=== PATIENT | male | born 1950 | race Caucasian/White ===

== ENCOUNTER 2018-11-13 16:21 | Inpatient (IN) | payer MEDICARE, OTHER ==
[~2018-11-13] VITALS: Ht 170.2 cm; Wt 61.7 kg
--- NOTE | ~2018-11-13 | CON ---
[address] [address] CONSULTATION Name: PEÑASANTOSH AUDRA Room: [address] IN M.R.#: [id number] Admission: 11/13/18 Attend Phys: Mila Rodriguez MD Discharge: Date of : 48 Report #: [id number] THIS REPORT FOR: //name// CC: Jac Rodriguez [facility] DATE OF SERVICE: 11/23/2018 CONSULTATION: Infectious diseases. HISTORY OF PRESENT ILLNESS: The patient is a 68-year-old white male with end-stage COPD. The patient was hospitalized on 11/13/2018 with exacerbation of this. He was treated with antibiotics. However, within the few days the family and the patient said they wanted just comfort care. The patient was refusing therapies. His prognosis was very poor because of fixed extensive lung disease. The patient continued in the hospital and home care with hospice was set up. The patient became more short of breath and the family is now ambivalent about their decision to go to hospice. Infectious Disease consultation was requested to advise as to further aggressive therapy. PAST MEDICAL HISTORY: Significant for COPD, cor pulmonale, pulmonary hypertension, peripheral hypertension, hyperlipidemia. SOCIAL HISTORY: The patient was a heavy cigarette smoker. He is disabled. He now lives at home with family. REVIEW OF SYSTEMS: The patient is not complaining of fevers, chills, sweats. He denies any headache, sinus congestion, sore throat, trouble swallowing. The family notes that his mental status waxes and wanes. He has been sometimes confused and other times cogent. The patient has a cough which is nonproductive and is weak, but can be persistent. He denies any chest pain. He has chronic dyspnea in spite of oxygen. The patient denies nausea, vomiting, abdominal pain. Genitourinary: Catheter -- no complaints. Extremities -- no complaints. PHYSICAL EXAMINATION: GENERAL: The patient appears to be a debilitated, older gentleman looking older than his stated age, alert, able to carry on conversation, not in distress. VITAL SIGNS: Show the patient's temperature is normal. His respiratory rate is elevated. SKIN: Shows a number of ecchymoses and is somewhat pale and sallow, but otherwise without rash. There is a small area on the sacrum, which is somewhat erythematous. There is about 2 mm punctate wound, which might represent an early decubitus ulcer, although I cannot see the base clearly and it maybe a previous wound or even a congenital abnormality which has been epithelialized. [place] [address] CONSULTATION Name: SANTOSH PEÑA AUDRA Room: [address] IN M.R.#: [id number] Admission: 11/13/18 Attend Phys: Mila Rodriguez MD Discharge: Date of : 48 Report #: [id number] MUSCULOSKELETAL: The patient appears sarcopenic and weak. ENT: otherwise unremarkable. HEART: Sounds S1, S2. CHEST: Breath sounds were diminished with a few scattered rhonchi. The patient was not clinically dyspneic at rest in bed. ABDOMEN: Thin, soft, not tender. EXTREMITIES: Thin, but otherwise unremarkable. LABORATORY DATA: White count is 21.9, hemoglobin 14.9, platelet 254,000. Electrolytes show sodium 122, potassium 2.6, chloride 81, bicarbonate 42, BUN 13, creatinine 0.6, glucose 177. Liver function tests were normal. The radiograph of the chest showed COPD changes with increased interstitial fibrosis. There appeared to be increased bibasilar infiltrates relative to baseline films. ASSESSMENT AND PLAN: In summary, the patient with exacerbation of chronic obstructive pulmonary disease, probably has a superimposed pneumonia with more dyspnea, leukocytosis and infiltrates. I discussed with the family in the presence of the patient that this is a rather dire situation. He has severe fixed disease, which will not get better. There probably is a superimposed acute component, which may respond to aggressive therapy. However, this will involve the patient give some effort to participate in therapies including consenting to medication, blood draws, testing, respiratory therapy. He also to get better will need to work with physical therapy to increase strength to try to get out of bed more and nutritional therapy by consuming an adequate number of supplements for protein and calorie malnutrition. I compared this regimen to training for an athletic event. This will not happen just lying down and do what is most comfortable. Even with the best of case, the patient may or may not respond. If he does respond, he will still have a fixed lung disease, which will probably be terminal in the 6-12 months range. The family wondered if we could do aggressive care and still have hospice at home. I explained that really is not the mission of hospice and they will need to obtain some clarity as to how they want to manage the patient's end of life care. For now, we will restart antibiotics with cefepime and Levaquin. I would like to check for inflammatory markers including procalcitonin, sedimentation rate, and lactate. We can try to find the pathogen using urinary antigens for Pneumococcus and Legionella. We will check BNP and TSH and see if there was any metabolic impediments to healing. At this time, we will not be able to obtain sputum for direct culture without a bronchoscopy. I appreciate the opportunity to offer input in the care of the patient. I had further conversation out of the room with his daughter to try to explain the choices that the family will need to make. Dr[place] [address] CONSULTATION Name: SANTOSH PEÑA Room: [address] ADM IN .R.#: [id number] Admission: 11/13/18 Attend Phys: Mila Rodriguez MD Discharge: Date of : 48 Report #: [id number] disease care on Saturday. Thank you for this consultation. By: [id number] Fisher MD /cedrick
[~2018-11-13 16:21] MED LIST: ACETAMINOPHEN325 M1 PO; ADVAIR 500-501 EACH INH; ALBUTEROL2.5 MG/0.1 INH; ALBUTEROL2.5 MG/31 IH; ANDROGEL; ANDROGEL5 GM TOP; ASPIRIN325 OR; ATROVENT HFA14 GM INH; ATROVENT INHALER INH; CALCIUM; CALCIUM500 MG PO; CENTRUM SILVER1 EAC1 PO; COMBIVENT; FLONASE 0.05%50 MCG; GUAIFENESIN L1200 MG OR; LASIX 20 MG TAB20 MG PO; METAFOLBIC TAB1 EACH PO; MUCUS ER600 MG PO; MULTIVITAMINS PO; NICOTINE TRANSD14 M1; POTASSIUM OTC; POTASSIUM20 PO; PREDNISONE 10 M10 M1 PO; PREDNISONE 20 M20 M1; PREDNISONE 20 M20 MG PO; PROAIR HFA8.5 GM INH; ROVIN-CF OF TA1 EACH; SINGULAIR 10 MG10 M1 OR; SPIRIVA; SYMBICORT; SYMBICORT80 MCG/4.1 INH; XANAX 0.25 MG0.25 MG PO; ZPAK PO
[2018-11-13 16:23] VITALS: BP 167/93
[2018-11-13 17:06] LABS: HEMOGLOBIN 14.9 gm/dL (14.0-18.0); MCH 30.4 pg (26.0-34.0); MCHC 33.9 g/dL (28.0-37.0); MCV 89.7 fL (80.0-100.0); MPV 7.7 fl. (7.2-11.1); NUCLEATED RBCS 0 /100WBC; PLATELET COUNT* 287 thou/uL (150-400); RBC 4.91 mil/uL (4.50-6.00); RDW-CV 12.9 % (10.5-14.5); WBC 11.2 thou/uL (4.0-11.0)
[2018-11-13 17:27] LABS: ALBUMIN 3.6 g/dL (3.4-5.0); ALKALINE PHOSPHATASE 54 U/L (46-116); ANION GAP 4 mmol/L (7-16); BUN 8 mg/dL (7-18); CALCIUM 8.8 mg/dL (8.5-10.1); CHLORIDE 89 mmol/L (98-107); CO2 37 mmol/L (21-32); CREATININE 0.7 mg/dL (0.6-1.3); GLUCOSE 116 mg/dL (70-99); LIPASE 122 U/L (73-393); MAGNESIUM 1.9 mg/dL (1.8-2.4); NT-PRO BRAIN NAT PEPTIDE 302 pg/mL (<300); POTASSIUM 3.6 mmol/L (3.5-5.1); SGOT 26 U/L (15-37); SGPT 23 U/L (30-65); SODIUM 130 mmol/L (136-145); TOTAL BILIRUBIN 0.5 mg/dL (<0.1-1.0); TOTAL PROTEIN 6.9 g/dL (6.4-8.2); TROPONIN-I LEVEL <0.06 ng/mL (<0.06)
[2018-11-13 17:38] LABS: APTT 26.1 Seconds (25.0-31.3); PROTIME 10.5 Seconds (9.20-11.50)
[2018-11-13 17:45] LABS: ABSOLUTE MONOCYTES 0.8 thou/uL (0.0-1.2); ABSOLUTE NEUTROPHILS 9.4 thou/uL (1.6-8.1)
[2018-11-13 17:46] LABS: PLATELET ESTIMATE ADEQUATE
[2018-11-13 18:31] VITALS: BP 191/90
[2018-11-13 18:40] VITALS: BP 225/112
[2018-11-13 19:30] VITALS: BP 183/89
[2018-11-13 19:42] LABS: BE 4.1 mmol/L (-2 to +3); PO2 95.2 mmHg (75.0-100.0); pH 7.311 (7.340-7.450)
--- NOTE | 2018-11-13 19:43 | NUR ---
PATIENT ARRIVED FROM ER WITH BLOOD PRESSURE 225/112, PULSE 129, SATS 89% ON 3L. PATIENT SETTLED TO ROOM. DR MERLOS NOTIFIED OF VITAL SIGNS. PLACED ON TELEMETRY. DR MERLOS ORDERED HYDRALAZINE, ABG'S AND BIPAP. RT NOTIFIED. FAMILY AT BEDSIDE. WILL CONTINUE TO MONITOR.
[2018-11-13 19:47] LABS: PCO2 66.4 mmHg (35.0-45.0)
[2018-11-13 21:30] VITALS: BP 151/78
--- NOTE | 2018-11-13 23:35 | NUR ---
PT ADMITTED TO ROOM 318 AT SHIFT CHANGE FOR EXACERBATION COPD, PNEUMONITIS, RESPIRATORY FAILURE. PT ON O2 AT 4 LITERS AT THAT TIME. PT'S RESPIRATIONS LABORED. PT USING ALL EXCESSORY MUSCLES TO BREATHE. PT GIVEN PRN XANAX TO REDUSE ANXIETY IN ATTEMPT TO EASE WORK OF BREATHING. DR MERLOS NOTIFIED OF PT'S CONDITION. STAT ABG OBTAINED, RESULTS REPORTED TO DR MERLOS. RECIEVED ORDERS FOR BIPAP AND PULMONARY CONSULT. PT GIVEN IV SOLUMEDROL ORDERED. RT INITIATED BIPAP. PT GIVEN IV LASIX PER DR RODRIGUEZ ORDERS. AT 2100 PT BREATHING EASIER, RESPIRATIONS 18-22. PT NO LONGER USING ACCESSORY MUSCLES AND WORK OF BREATHING MUCH EASIER. PT VOIDING PER URINAL AT THAT TIME. URINAL SPILLED ON FLOOR. [place] CATHETER PLACED FOR SHORT TIME BUT PT ASKED TO HAVE IT REMOVED. PT GIVEN IV HYDRALAZINE BY DAY SHIFT NURSE FOR HYPERTENTION. PT'S BLOOD PRESSURE AT 2130 151/78 HEART RATE 125. PT GIVEN 5 MG IV LOPRESSOR PER DR RODRIGUEZ ORDERS. PT'S HEART RATE AT THIS TIME 106, O2 SAT 96%. PT SITTING IN CHAIR PER HIS REQUEST. CALL LIGHT IN REACH. PT DEMONSTRATES PROPER USE.
[2018-11-14] VITALS (7 sets, daily range): BP systolic 152–218; BP diastolic 80–96
[2018-11-14 04:03] LABS: HEMATOCRIT 46.3 % (42.0-52.0); HEMOGLOBIN 15.7 gm/dL (14.0-18.0); MCH 30.7 pg (26.0-34.0); MCV 90.4 fL (80.0-100.0); MPV 7.7 fl. (7.2-11.1); RBC 5.12 mil/uL (4.50-6.00); RDW-CV 12.9 % (10.5-14.5); WBC 7.8 thou/uL (4.0-11.0)
[2018-11-14 04:33] LABS: CALCIUM 8.1 mg/dL (8.5-10.1); CREATININE 0.7 mg/dL (0.6-1.3); MAGNESIUM 1.7 mg/dL (1.8-2.4); POTASSIUM 3.5 mmol/L (3.5-5.1)
[2018-11-14 07:36] LABS: BE 6.5 mmol/L (-2 to +3); pH 7.357 (7.340-7.450)
[2018-11-14 07:39] LABS: PCO2 62.9 mmHg (35.0-45.0); PO2 193.9 mmHg (75.0-100.0)
--- NOTE | 2018-11-14 09:11 | EKG ---
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: : 1950 Requested By: Winston Dunne Order Number: [id number] MD: Fran Elias Measurements Intervals [place] Rate: 113 P: 73 IL: 136 QRS: 28 QRSD: 99 T: 57 QT: 367 QTc: 504 Interpretive Statements Sinus tachycardia Probable left atrial enlargement RSR' in V1 or V2, right VCD or RVH Left ventricular hypertrophy Prolonged QT interval Compared to ECG 11/24/2013 19:21:09 Left ventricular hypertrophy now present Prolonged QT interval now present Electronically Signed On 11-14-2018 9:11:21 CDT by Fran Elias [email or web address] <ELECTRONICALLY SIGNED> By: Fran Elias MD, [facility] 11/14/18 0911 1623 1623 Fran Elias MD, [facility] /EPI
--- NOTE | 2018-11-14 16:28 | NUR ---
SW met with pt to complete initial assessment, introduce self, and SW role. Pt lives at home with his . Pt has home oxygen and respiratory treatments. Pt said to refer to his for any dc needs or any other questions. SW to continue to follow to assist with safe dc planning.
--- NOTE | 2018-11-14 17:46 | NUR ---
PATIENT RESTING UP IN CHAIR. SPECIALTY BED ORDERED BUT PATIENT REFUSING AT THIS TIME. PATIENT IS SHORT OF AIR WITH EXERTION. PATIENT DID WORK WITH PHYSICAL THERPY THIS AFTERNOON AND DESATED WITH SLOW RECOVERY TIME. PATIENT ON 3L/NC WITH BIPAP ON STANDBY AND FOR SLEEP. PATIENT DENIES ANY NEEDS AT THIS TIME. CALL LIGHT WITHIN REACH. WILL CONTINUE TO MONITOR.
[2018-11-15] VITALS (7 sets, daily range): BP systolic 141–178; BP diastolic 55–128
--- NOTE | 2018-11-15 00:35 | NUR ---
INITAL ASSESMENT COMPLETED AT 2099 PT'S BLOOD PRESSURE AT THAT TIME 218/96. PT GIVEN PRN HYDRALAZINE AND SCHADULED IV LOPRESSOR. PT ON BIPAP AT 1999 PER REQUEST. PT'S OS SAT ON BIPAP 96%. PT IN SPECIALTY BED WITH CALL LIGHT IN REACH.
[2018-11-15 04:21] LABS: HEMATOCRIT 43.2 % (42.0-52.0); HEMOGLOBIN 14.8 gm/dL (14.0-18.0); MCH 30.6 pg (26.0-34.0); MCHC 34.2 g/dL (28.0-37.0); MCV 89.6 fL (80.0-100.0); MPV 7.7 fl. (7.2-11.1); RBC 4.83 mil/uL (4.50-6.00); WBC 8.3 thou/uL (4.0-11.0)
[2018-11-15 04:41] LABS: ALBUMIN 3.5 g/dL (3.4-5.0); CALCIUM 8.7 mg/dL (8.5-10.1); CREATININE 0.9 mg/dL (0.6-1.3); MAGNESIUM 2.4 mg/dL (1.8-2.4); POTASSIUM 3.9 mmol/L (3.5-5.1); TOTAL BILIRUBIN 0.6 mg/dL (<0.1-1.0); TOTAL PROTEIN 6.5 g/dL (6.4-8.2)
[2018-11-15 06:13] LABS: BE 17.4 mmol/L (-2 to +3); PO2 97.4 mmHg (75.0-100.0)
[2018-11-15 06:17] LABS: PCO2 75.5 mmHg (35.0-45.0)
--- NOTE | 2018-11-15 10:48 | CON ---
[address] [address] CONSULTATION Name: SANTOSH PEÑA Room: [address] ADM IN M.R.#: [id number] Admission: 11/13/18 Attend Phys: Mila Rodriguez MD Discharge: Date of : 48 Report #: [id number] THIS REPORT FOR: //name// CC: AKIN Schwarz MD DATE OF SERVICE: 11/14/2018 LOCATION: Room 318. ATTENDING PHYSICIAN: Dr. Mila Rodriguez. HISTORY OF PRESENT ILLNESS: The patient is a 68-year-old male, prior heavy smoker with very severe COPD. He has been oxygen, steroid and Trelegy dependent; for the last 5 years for oxygen and steroids and Trelegy for the last year or 2. The patient has had increasing cough with shortness of breath. He has been sick for 3 days. He only gets out of the house twice in about the last 2 months, he has no sick or ill contacts. He had his flu shot this fall. He had his pneumonia vaccine this fall also. He denies any sinus drainage or aspiration. He has been losing weight. He gets little bit more short of breath when he eats. No choking admitted by him. He had little bit of peripheral edema in his right leg and I think one dose of Lasix took care of that. He has been on steroids, prednisone [address] Gonzalez and Dr. Schwarz for his COPD. The patient has been DNR/DNI in the past. He is much more short of breath, sleeps on the BiPAP at night and had Trelegy. CO2 levels came down in the 60s, which was his baseline early this morning on 3 liters, normally he is on 2-3 liters at home. PAST MEDICAL HISTORY: He has a history of very severe COPD in the last 5 or 6 years. Again, oxygen and steroid dependent for most of that time and then Trelegy dependent for the last year or two. Also, has hyperlipidemia. ALLERGIES: He has no known medical allergies. OUTPATIENT MEDICATIONS: Included albuterol nebulizers 4 times a day followed by Spiriva Handihaler inhaled 1 capsule daily, montelukast 10 mg every evening, prednisone dose is 20 mg every day and then he is on Symbicort 80/4.5 two puffs b.i.d. routinely, also is on budesonide 0.5 mg once or twice a day at home, has used formoterol or Brovana in the past also 15 mcg twice daily. In the hospital, he was on IV Levaquin. I will reorder an antibiotic. He had one [place] [address] CONSULTATION Name: SANTOSH PEÑA Room: [address] IN [facility]#: [id number] Admission: 11/13/18 Attend Phys: Mila Rodriguez MD Discharge: Date of : 48 Report #: [id number] FAMILY HISTORY: Mother with lung cancer. Father with heart disease. SOCIAL HISTORY: He is , has 2 sons. 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 Denies any alcohol or illicit drug use. REVIEW OF SYSTEMS: A 14-point review of systems was reviewed and negative except for pertinent positives noted in HPI. He has had some weight loss according to old notes and chronically short of breath. PHYSICAL EXAMINATION: GENERAL: A pleasant appearing enough, but chronically dyspneic 68-year-old male with his in the room. He is sitting up in a chair. VITAL SIGNS: Blood pressure is 158/80; heart rate is 104; respirations are 20, slightly labored and temperature is 36 degrees. Saturation on 2 liters is 95%. He is 5 feet 10 inches tall, weight is 61 kilograms or 135 pounds, previously was 131 pounds in 07/[address] Schwarz saw him and his BMI was 20 at that time, it is 21 now. Weight was about the same. HEENT: Unremarkable. Pharynx is clear. Mucous membranes are moist. No increase in jugular venous pressure. CHEST: Reveals markedly hyperinflated chest. Diminished breath sounds, prolonged expiratory phase with wheeze and rhonchi. CARDIOVASCULAR: Sinus tachycardia with heart rate 104. ABDOMEN: Soft, without masses or megaly. EXTREMITIES: He has trace edema in the right leg, none on the left. He can move all 4 extremities to commands. He is somewhat weak, getting up and out of the chair. NEUROLOGIC: Grossly intact. LABORATORY DATA: From 11/14/2018 showed hemoglobin of 15, white count 7800, platelets are 329,000. Sodium is 130, potassium is 3.5, chloride is 88, bicarbonate is elevated at 36, anion gap is 6, glucose is 135, calcium is 8.1, magnesium is 1.7. ABGs this morning at 7:30 when he was awake on 40% BiPAP 07/31 showed pO2 of 193, pH of 7.36, pCO2 of 63, bicarbonate is 34 with a sat of 98%. Carboxyhemoglobin is only 0.1 x 0.8 and that was on 40%, 07/31. Chest x-ray shows COPD and hyperinflation. Last spirometry Dr. Schwarz had on him in 2013, FEV1 was 0.40 with an FVC of 1.3 liters, FEV1 was 16% of predicted. Chest x-ray showed COPD and hyperinflation and that was the same that was in the hospital here from yesterday. Dr. Schwarz had an outpatient chest x-ray dated 08/28/2018 from [facility] showing severe COPD, also has kyphosis and dextroscoliosis of the thoracic spine, no fractures noted, pulmonary hyperinflation and chronic lower lobe interstitial fibrosis mostly in the right upper lobe, some in the right lower lobe. No change from 2013. IMPRESSION: [place] [address] CONSULTATION Name: SANTOSH PEÑA AUDRA Room: [address] IN [facility]#: [id number] Admission: 11/13/18 Attend Phys: Mila Rodriguez MD Discharge: Date of : 48 Report #: [id number] 1. Very severe chronic obstructive pulmonary disease, oxygen, steroid and Trelegy dependent, doing poorly. 2. Acute bronchitis and bronchospasm. 3. May be mild fluid overload and cor pulmonale. PLAN: Lasix p.r.n. Will continue with antibiotics at this time. Chest x-rays really have not changed much. We will see if we can keep him on the BiPAP at night and see if that does not clear him during the day, he has a Trelegy at home and he can continue to use that. Overall, prognosis is guarded and the patient is a DNR/DNI and he and his understand that. He has actually done quite well, stayed out of the hospital for the last 4 years, but he is having a progressive downhill course. Previous FEV1 was 0.40, less than 60% predicted with hypercarbia, it is not a good prognostic sign. We will see if we can get him out in the home. If he continues to have problems, he may be a candidate for palliative care and hospice with a life expectancy of 6-12 months. Thanks again for allowing us to participate in this man's care. We will follow up along with you while he is in the hospital. <ELECTRONICALLY SIGNED> By: Whit Schwarz MD 11/15/18 1048 [id number] [id number] Alford MD /nt
--- NOTE | 2018-11-15 17:12 | NUR ---
PT HAS BEEN UP TO CHAIR AT BEDSIDE AND TOLERATED WELL. PT USES URINAL AND SBA UP TO BSC. O2 AT 3L PER NC,PT BECOMES SOB WITH EXERTION. PT HAS MOIST COUGH BUT NOT ABLE TO SPIT OUT SPUTUM. PT DENIES PAIN OR NAUSEA. PT REMAINS ALERT AND ORIENTATED. HOURLY ROUNDING CONTINUES.
[2018-11-16] VITALS: BP 170/128
--- NOTE | 2018-11-16 01:29 | NUR ---
INITAL ASSESMENT COMPLETED AT 1999. PT IN CHAIR AT THAT TIME WATCHING TELEVISION. PT WEARING O2 AT 2 LIERS PER NASAL CANULA AT THAT TIME WITH O2 SAT OF 94%. BIPAP PLACE AT 2100 AFTER HS MEDS. AT MIDNIGHT PT BECAME STARTLED WHEN AWAKNED FOR VITAL SIGNS. PT PULLED OFF BIPAP DISROBED AND PULLED OFF TELE LEADS. PT CAREFULLY REORIENTED AND ASSITED BACK TO BED. BIPAP, TELE LEADS AND GOWN REPLACED. PT CONFUSED TO TIME PLACE AND SITUATION. PT GIVEN MIDNIGHT DOSE OF PO CARDIZEM. PT REORIENTED AND REASSURED. BED ALARM ON, FREQUENT VISUAL CHECKS DONE.
[2018-11-16 03:26] VITALS: BP 166/69
--- NOTE | 2018-11-16 03:46 | NUR ---
BED ALARM WENT OF AT 0320. PT CLIMBING OUT OF BED TOTALLY DISROBED. PT AGITATED, VERY DIFFICULT TO REORIENT. PT ASSISTED BACK TO BED. GOWN REPLACED. ASKED PT IF HE NEEDED TO URINATED PT RESPONDED NO. PT MOVED TO ROOM 315 AT 0330. BED ALARM HAS GONE OFF TWICE SINCE THAT TIME.
--- NOTE | 2018-11-16 04:03 | NUR ---
PT AWAKE AND CONFUSED. PT REMAINS IN BED AT THIS TIME. PT PULLING OFF BIPAP. BIPAP REPLACED. EDUCATED PT ON NEED TO LEAVE MASK ON.
[2018-11-16 04:15] LABS: ABSOLUTE LYMPHOCYTES 0.2 thou/uL (0.8-5.3); ABSOLUTE MONOCYTES 0.7 thou/uL (0.0-1.2); ABSOLUTE NEUTROPHILS 10.2 thou/uL (1.6-8.1); BASOPHILS 0.1 %; HEMATOCRIT 40.8 % (42.0-52.0); LYMPHOCYTES 1.8 %; MCH 30.4 pg (26.0-34.0); MCHC 34.4 g/dL (28.0-37.0); MCV 88.5 fL (80.0-100.0); MONOCYTES 6.4 %; MPV 7.8 fl. (7.2-11.1); NUCLEATED RBCS 0 /100WBC; PLATELET COUNT* 278 thou/uL (150-400); POLYS 91.7 %; RBC 4.61 mil/uL (4.50-6.00); RDW-CV 12.7 % (10.5-14.5); WBC 11.1 thou/uL (4.0-11.0)
[2018-11-16 04:33] LABS: CALCIUM 8.2 mg/dL (8.5-10.1); CREATININE 0.9 mg/dL (0.6-1.3); POTASSIUM 3.2 mmol/L (3.5-5.1)
--- NOTE | 2018-11-16 06:51 | NUR ---
PT VERY CONFUSED AND IMPULSIVE DURING NIGHT. DIFFICULT TO REORIENT AND REDIRECT PT. PT REMAINS WITH GOWN OFF AND COVERED BY SHEET AT THIS TIME. PT CONTINUED ON BIPAP ORDERED. PT TACHYCARDIC AT TIMES. PT GIVEN PRN HYDRALAZINE ONCE DURING SHIFT FOR HYPERTENSION. PT RECIEVING IV STEROIDS AND ANTIBIOTICS FOR TREATMENT OF EXACERBATION OF COPD. PT REMAINS IN ROOM 315 CLOSE TO NURSES STATION. BED ALARM REMAINS ON. NO ACUTE CHANGES, WILL CONTINUE TO MONITOR.
[2018-11-16 09:00] LABS: BE 6.5 mmol/L (-2 to +3); PO2 104.1 mmHg (75.0-100.0); pH 7.373 (7.340-7.450)
[2018-11-16 09:06] LABS: PCO2 59.6 mmHg (35.0-45.0)
[2018-11-16 09:30] VITALS: BP 174/78
[2018-11-16 12:00] VITALS: BP 136/63
[2018-11-16 15:00] VITALS: BP 157/73
[2018-11-17] VITALS (7 sets, daily range): BP systolic 135–218; BP diastolic 67–106
--- NOTE | 2018-11-17 06:12 | NUR ---
PT CONFUSED AND TRYING TO GET OUT OF BED MUCH OF THE NIGHT, TAKING OFF BIPAP AND GOWN. SLEPT FOR AWHILE AFTER RECEIVING PRN MEDS. LFA IV SL. BIPAP ON MOST OF THE NIGHT, REPLACED SEVERAL TIMES AFTER PT TOOK IT OFF OR DISCONNECTED IT ATTEMPTING TO GET OUT OF BED. COMBATIVE WITH STAFF AT TIMES, DIGGING FINGERNAILS INTO HIMSELF AND STAFF. TELE SR. LABORED BREATHING, MORPHINE GIVEN PRN. SCRATCHES TO L DE PAZ FROM PT OWN FINGERNAILS, CLEANSED WITH WOUND CLEANSER AND MEPILEX DRSG PLACED. L ELBOW ABRASION FROM SCOOTING ARM ACROS SHEETS TRYING TO GET OOB, CLEANSED WITH WOUND CLEANSER AND MEPILEX APPLIED. REFUSING TO TAKE PO MEDS THIS MORNING. HAS MOVED ABOUT FREQUENTLY IN BED OVERNIGHT. AT START OF SHIFT PT UP IN CHAIR WEARING BIPAP, ALERT AND ORIENTED TO SELF AND SITUATION BUT BECOMING CONFUSED AND RESTLESS AT BEDTIME. CALL LITE IN EASY REACH, BED ALARM ON FOR SAFETY. BARRIER CREAM TO COCCYX BEFORE BED. LUNGS COARSE, DIMINISHED.RT TX GIVEN.BED ALARM ON FOR SAFETY.
[2018-11-17 08:29] LABS: BE 8.8 mmol/L (-2 to +3)
[2018-11-17 08:32] LABS: PCO2 93.1 mmHg (35.0-45.0); PO2 151.2 mmHg (75.0-100.0); pH 7.257 (7.340-7.450)
[2018-11-17 08:47] LABS: ALBUMIN 3.8 g/dL (3.4-5.0); CALCIUM 8.7 mg/dL (8.5-10.1); CREATININE 0.9 mg/dL (0.6-1.3); POTASSIUM 4.2 mmol/L (3.5-5.1); TOTAL BILIRUBIN 0.8 mg/dL (<0.1-1.0); TOTAL PROTEIN 6.8 g/dL (6.4-8.2)
--- NOTE | 2018-11-17 08:52 | NUR ---
BEDSIDE REPORT BEING COMPLETED AT 0740 THIS AM WITH OFFGOING NURSE. PATIENT CONFUSED, ATTEMPTING TO GET OUT OF BED AND NOT FOLLOWING COMMANDS. PATIENT'S ASSESSMENT COMPLETED, PATIENT TAKING BIPAP OFF. PAITENT'S SKIN HOT AND MOIST, PATIENT ACTIVELY SWEATING. WOOD TECHNOLOGIST PLACED BACK ON PATIENT. VITALS TAKEN. 0750-VITALS TAKEN. PATIENT BECOMING MORE AND MORE ANXIOUS. RESPIRATORY IN TO GIVE BREATHING TREATMENT TO PATIENT. O2 SAT 72-77% ON 5L/NC. 0805-HOUSE DETECTIVE ACTIVATED. NON REBREATHER STARTED. FAMILY AT BEDSIDE. PATIENT LESS ANXIOUS AT PRESENT TIME WITH NON REBREATHER. 0815-LABS AND ABG'S ORDERED PER HOUSE DETECTIVE. PATIENT'S FAMILY REMAINS AT BEDSIDE. 0832-ABG RESULTS CRITICAL AND REPORTED TO DR CONCEPCION. DR. CONCEPCION AT BEDSIDE ASSESSING PATIENT AND SPEAKING TO FAMILY. ORDERS RECEIVED. IV ATIVAN GIVEN AND SOLUMEDROL ORDERED. 0840-PATIENT LESS AGITATED AND ANXIOUS. RESTING IN BED WITH BIPAP ON. BED ALARM ON FOR SAFETY. FAMILY AT BEDSIDE.
--- NOTE | 2018-11-17 15:26 | NUR ---
SW called pt to discuss doctor's recommendations for discussions with family regarding palliative care or hospice care at [facility]. SW then met with pt and pt family a couple of times and provided resources/referrals regarding hospice options. Pt family express concern with pt to dc home with hospice at this stage due to pt not sure she would be able to care for pt as needed. Pt and pt family inquiring about if pt may be eligible for hospice house; SW explained SW could provide referral to hospice house to evaluate whether this could be an option for pt. ULYSSES called pt first preference of [facility] on [address] in [place] [phone] fax [phone]. SW to fax face sheet, H&P, and order for hospice house to evaluate once available to Hospice House. SW to continue to follow to assist with safe dc planning. SW and pt family discussed other dc options if pt does not qualify for hospice house such as home with increased care and hopsice services, LTC with hospice services.
--- NOTE | 2018-11-17 17:56 | EKG ---
[place] [address] ELECTROCARDIOGRAM REPORT Name: SANTOSH PEÑA Room: [address] ADM IN M.R.#: [id number] Admission: 11/13/18 Attend Phys: Mila Rodriguez MD Discharge: Date of : 48 Report #: [id number] THIS REPORT FOR: //name// [facility] Test Date: 2018-11-17 Test Time: 08:19:06 Pat Name: SANTOSH PEÑA Department: Room: [address] Gender: M Contract Design Agent: : [id number] Requested By: Pascual Chavis Order Number: [id number] Reading MD: Fran Elias Measurements Intervals [place] Rate: 113 P: 79 IL: 175 QRS: 21 QRSD: 107 T: 68 QT: 324 QTc: 445 Interpretive Statements Sinus tachycardia Probable left atrial enlargement RSR' in V1 or V2, right VCD or RVH Left ventricular hypertrophy Compared to ECG 11/13/2018 16:23:01 no change Electronically Signed On 11-17-2018 17:56:28 CDT by Fran Elias [email or web address] <ELECTRONICALLY SIGNED> By: Fran Elias MD, FAC 11/17/18 1756 8 8 Fran Elias MD, [facility] /EPI
--- NOTE | 2018-11-17 19:27 | NUR ---
PATIENT HAS BEEN AWAKE INTERMITTENTLY THIS SHIFT. HAS BEEN RESTLESS AND ANXIOUS AT TIMES, MEDICATED WITH PRN ATIVAN WITH RELIEF. PATIENT'S FAMILY SPOKE WITH PULMONARY AND DR CONCEPCION. CM SPOKE TO FAMILY ABOUT HOSPICE. PATIENT GIVEN MORPHINE X 1 THIS AFTERNOON FOR AIR HUNGER. PATIENT HAS KEPT BIPAP ON ALL SHIFT. PATIENT TURNED EVERY 2 HOURS, PATIENT INCONTINENT OF URINE THIS SHIFT. SPOKE WITH DR CONCEPCION, SPENCER PLACED AND HAS HAD 850ML OF URINE RETURN. PATIENT MORE COMFORTABLE AFTER SPENCER PLACED. FAMILY HAS BEEN AT BEDSIDE ALL SHIFT. FALL PRECAUTIONS IN PLACE. HOURLY ROUNDING COMPLETED. CALL LIGHT WITHIN REACH. WILL CONTINUE WITH PLAN OF CARE.
--- NOTE | 2018-11-18 06:15 | NUR ---
PATIENT SLEPT MOST OF THE NIGHT. BIPAP HAS BEEN ON ALL NIGHT. PATIENT WAS GIVEN ATIVAN TWICE FOR RESTLESSNESS. SPENCER REMAINS TO DEPENDENT DRAIN. WILL CONTINUE TO MONITOR.
[2018-11-18 07:30] VITALS: BP 187/83
--- NOTE | 2018-11-18 11:52 | NUR ---
ULYSSES received call from Angie in intake with [facility] who received SW referral and order to evaluate pt for [facility]osp[facility]. Nurse to arrive to pt room to meet with family at 1:30 pm today. SW informed pt and pt family and pt nurse. SW to continue to follow to assist with safe dc planning.
[2018-11-18 14:13] VITALS: BP 173/86
[2018-11-18 16:53] VITALS: BP 163/78
[2018-11-19 04:08] VITALS: BP 173/71
[2018-11-19 04:49] LABS: HEMATOCRIT 41.4 % (42.0-52.0); HEMOGLOBIN 13.9 gm/dL (14.0-18.0); MCH 29.8 pg (26.0-34.0); MCHC 33.6 g/dL (28.0-37.0); MCV 88.7 fL (80.0-100.0); MPV 8.3 fl. (7.2-11.1); NUCLEATED RBCS 0 /100WBC; PLATELET COUNT* 225 thou/uL (150-400); RBC 4.66 mil/uL (4.50-6.00); RDW-CV 12.4 % (10.5-14.5); WBC 18.5 thou/uL (4.0-11.0)
[2018-11-19 05:06] LABS: ALBUMIN 3.2 g/dL (3.4-5.0); ALKALINE PHOSPHATASE 42 U/L (46-116); CALCIUM 8.5 mg/dL (8.5-10.1); CHLORIDE 81 mmol/L (98-107); CREATININE 0.6 mg/dL (0.6-1.3); GLUCOSE 142 mg/dL (70-99); MAGNESIUM 2.1 mg/dL (1.8-2.4); POTASSIUM 3.6 mmol/L (3.5-5.1); SGOT 26 U/L (15-37); SGPT 41 U/L (30-65); SODIUM 128 mmol/L (136-145); TOTAL BILIRUBIN 0.7 mg/dL (<0.1-1.0); TOTAL PROTEIN 5.8 g/dL (6.4-8.2)
[2018-11-19 05:18] LABS: BUN 13 mg/dL (7-18)
[2018-11-19 05:32] LABS: CO2 > 45 mmol/L (21-32)
[2018-11-19 06:03] LABS: ABSOLUTE LYMPHOCYTES 0.6 thou/uL (0.8-5.3); ABSOLUTE MONOCYTES 1.9 thou/uL (0.0-1.2); ABSOLUTE NEUTROPHILS 16.1 thou/uL (1.6-8.1); PLATELET ESTIMATE ADEQUATE
[2018-11-19 06:04] LABS: ANISOCYTOSIS 1+; POIKILOCYTOSIS 1+
--- NOTE | 2018-11-19 06:21 | NUR ---
PATIENT SLEPT WELL DURING THE NIGHT. PT ON O2 @ 10L PER HIGH FLOW CANNULA. PT CHANGED TO BIPAP AT NIGHT AND TOLERATED WELL. PT BECAME RESTLESS AROUND 0100 AND ATIVAN 0.25MG PO GIVEN. PT RELAXED AND RETURNED TO SLEEP AFTER THIS. PT DENIES PAIN ON THIS SHIFT. PT WITH SALINE LOCK IN LT FOREARM; PATENT. SPENCER TO DEPENDENT DRAIN WITH YELLOW URINE; APPROX 600ML OUT. PT ASSISTED WITH SOME TURNS BUT IS ABLE TO REPOSITION HIMSELF WELL. PT DENIES PAIN ON THIS SHIFT. FREQUENTLY USED ITEMS AND CALL LIGHT WITHIN REACH. SIDERAILS UPX4 AND BED ALARM ON. WILL CONTINUE TO MONITOR.
[2018-11-19 08:15] VITALS: BP 168/73
--- NOTE | 2018-11-19 14:26 | NUR ---
PATIENT STATING HIS COCCYX IS SORE, DESPITE HAVING WAFFLE CUSHION IN CHAIR. PATIENT'S COCCYX BLANCHABLE AND MEPILEX APPLIED TO HELP WITH CUSHIONING. WILL CONTINUE WITH PLAN OF CARE.
[2018-11-19 16:21] VITALS: BP 177/107
--- NOTE | 2018-11-19 16:38 | 2DMMODE ---
[place] [address] 2 D/M-MODE ECHOCARDIOGRAM Name: SANTOSH PEÑA Room: [address] IN [facility]#: [id number] Admission: 11/13/18 Attend Phys: Mila Rodriguez, Discharge: Date of : 48 Date of Service: 11/19/18 1638 Report #: [id number] THIS REPORT FOR: //name// APPROVED REPORT Study performed: 11/19/2018 15:57:14 EXAM: Comprehensive 2D, Doppler, and color-flow Echocardiogram Patient Location: In-Patient Room #: [facility] Status: routine BSA: 1.72 HR: 94 bpm BP: 168/73 mmHg Rhythm: NSR Other Information Study Quality: Fair Indications COPD Dyspnea 2D Dimensions IVSd: 11.06 (7-11mm) LVOT Diam: 20.50 (18-24mm) LVDd: 46.25 mm PWd: 9.87 (7-11mm) LVDs: 29.87 (25-40mm) Aortic Root: 28.74 mm Volumes Left Atrial Volume (Systole) LA ESV Index: 22.00 mL/m2 Aortic Valve AoV Peak Manuel.: 1.28 m/s AO Peak Gr.: 6.53 mmHg LVOT Max P.93 mmHg AO Mean Gr.: 3.57 mmHg LVOT Mean P.47 mmHg LVOT Max V: 0.86 m/s AO V2 VTI: 25.44 cm LVOT Mean V: 0.56 m/s YOLANDA (VTI): 2.28 cm2 LVOT V1 VTI: 17.57 cm Mitral Valve E/A Ratio: 0.65 MV Decel. Time: 184.40 [place] [address] 2 D/M-MODE ECHOCARDIOGRAM Name: SANTOSH PEÑA Room: [address] IN .R.#: [id number] Admission: 11/13/18 Attend Phys: Mila Rodriguez, Discharge: Date of : 48 Date of Service: 11/19/18 1638 Report #: [id number] MV E Max Manuel.: 0.66 m/s MV PHT: 53.48 ms MVA (PHT): 4.11 cm2 TDI E/Lateral E': 6.60 E/Medial E': 8.25 Medial E' Manuel.: 0.08 m/s Lateral E' Manuel.: 0.10 m/s Pulmonary Valve PV Peak Manuel.: 1.12 m/s PV Peak Gr.: 4.98 mmHg Left Ventricle The left ventricle is normal size. There is normal LV segmental wall motion. There is normal left ventricular wall thickness. Left ventricular systolic function is normal. The left ventricular ejection fraction is within the normal range. Grade I - abnormal relaxation pattern. Right Ventricle The right ventricle is normal size. The right ventricular systolic function is normal. Atria The left atrium size is normal. The right atrium size is normal. Aortic Valve The aortic valve is normal in structure. No aortic regurgitation is present. There is no aortic valvular stenosis. Mitral Valve The mitral valve is normal in structure. There is no mitral valve regurgitation noted. No evidence of mitral valve stenosis. Tricuspid Valve The tricuspid valve is normal in structure. Unable to assess PA pressure. Trace tricuspid regurgitation. Pulmonic Valve The pulmonary valve is normal in structure. There is no pulmonic valvular regurgitation. Great Vessels The aortic root is normal in size. IVC is normal in size and collapses >50% [place] [address] 2 D/M-MODE ECHOCARDIOGRAM Name: SANTOSH PEÑA AUDRA Room: [address] IN [facility]#: [id number] Admission: 11/13/18 Attend Phys: Mila Rodriguez, Discharge: Date of : 48 Date of Service: 11/19/18 1638 Report #: [id number] Pericardium There is no pericardial effusion. <Conclusion> Left ventricular systolic function is normal. The left ventricular ejection fraction is within the normal range. <ELECTRONICALLY SIGNED> By: Fran Elias MD, FACC 11/19/18 1638 1638 37 Fran Elias MD, [facility] /INF
--- NOTE | 2018-11-19 19:34 | NUR ---
PATIENT HAS BEEN A/O, STILL WITH SLIGHT CONFUSION. PATIENT UP IN CHAIR FOR PART OF SHIFT, O2 IN PLACE AT 9L HIFLO NASAL CANNULA. PATIENT'S BIPAP SETTINGS ADJUSTED PER PULM THIS SHIFT. PATIENT WITH FAIR APPETITE, SUPPLEMENTS GIVEN. PATIENT AND FAMILY MET WITH 3 DIFFERENT HOSPICE COMPANIES THIS SHIFT. PATIENT TURNED EVERY 2 HOURS FOR SKIN INTEGRITY, MEPILEX IN PLACE TO COCCYX TO PROTECT SKIN. SPENCER IN PLACE AND PATIENT HAS GOOD URINE OUTPUT. SALINE LOCK PATENT. CONTINUES ON RT TREATMENTS. FAMILY AT BEDSIDE THIS SHIFT. FALL PRECAUTIONS IN PLACE. HOURLY ROUNDING COMPLETED. CALL LIGHT WITHIN REACH. WILL CONTINUE WITH PLAN OF CARE.
[2018-11-19 21:10] VITALS: BP 193/93
--- NOTE | 2018-11-20 05:40 | NUR ---
PT SLEPT MOST OF SHIFT. ASSESSMENT DOCUMENTED. MEDS GIVEN PER E-OCT. IV PATENT. PT HAD NO REPORTS OF PAIN THIS SHIFT. ANXIETY MEDICATION GIVEN ONCE THIS SHIFT. BIPAP WORN MOST OF SHIFT. SPENCER IN PLACE DRAINING DEPENDENTLY. PT REPOSITIONING IN BED. WILL CONTINUE WITH PLAN OF CARE.
[2018-11-20 10:00] VITALS: BP 190/76
[2018-11-20 14:29] LABS: CREATININE 0.7 mg/dL (0.6-1.3); POTASSIUM 3.5 mmol/L (3.5-5.1)
[2018-11-20 15:17] VITALS: BP 140/87
--- NOTE | 2018-11-20 16:52 | NUR ---
SW met with pt and pt to discuss pt/family preference of hospice agency. Pt and pt family prefer [facility]; SW faxed referral info and order for eval to [facility] and discussed possible dc home with family and hospice care on Saturday. SW to continue to follow to assist with finalizing safe dc plan.
--- NOTE | 2018-11-20 17:49 | NUR ---
PATIENT IS ALERT AND ORINETED TODAY PLEASANT HAS BEEN ON OXYGEN TODAY STARTED AT 8 LITERS AND IS ON 4 LITERS NOW WITH A SATURATION IN THE MID 90'S. NO PAIN TODAY. FAMILY HAS BEEN AT BEDSIDE TODAY. PATIENT AND FAMILY READY TO GO HOME TOMORROW. HAS BEEN IN CHAIR MOST OF THE DAY AND DOING WELL. BED AND CHAIR ALARM ON. CALL LIGHT IS IN REACH, WILL CONTINUE TO MONITOR.
[2018-11-20 20:20] VITALS: BP 155/78
--- NOTE | 2018-11-21 05:58 | NUR ---
PT SLEPT MOST OF SHIFT. ASSESSMENT DOCUMENTED. MEDS GIVEN PER E-MAR. IV PATENT. O2 AT 4LNC WHILE AWAKE AND BIPAP WORN WHILE SLEEPING. NO REPORTS OF PAIN THIS SHIFT. ANXIETY MEDS GIVEN 1X THIS SHIFT PER PATIENT REQUEST. PT VOIDING THIS SHIFT, BLADDER SCANNER READING 710 AFTER VOIDING. NOTIFIED, ORDER FOR 1X STRAIGHT CATH RECIEVED. PT STRAIGHT CATHED WITH 400ML OUTPUT, PT TOLERATED WELL. WILL CONTINUE WITH PLAN OF CARE.
[2018-11-21 08:00] VITALS: BP 150/72
--- NOTE | 2018-11-21 12:35 | NUR ---
Nutrition: Pt seen for LOS. Pt doesn't feel ready to go home today. He wants to stay over the weekend. He stated he is eating fairly well, likes Ensure. RD will order Ensure pudding since pt is on fluid restriction. Spoke to RN about pt today. Pt is going hospice. Wt: 136#. Regular diet. If pt goes with hospice, will defer further nutrition. Mild risk at this time.
[2018-11-21 15:00] VITALS: BP 192/93
[2018-11-21] MEDS ORDERED: NORVASC10 MG PO (15:14)
[2018-11-21] MEDS ORDERED: PROTONIX40 M1 PO (15:14)
[2018-11-21] MEDS ORDERED: SPIRONOLACTONE25 MG PO (15:14)
[2018-11-21] MEDS ORDERED: FLOMAX0.4 MG PO (15:14)
[2018-11-21] MEDS ORDERED: ATIVAN0.5 MG PO (15:14)
[2018-11-21] MEDS ORDERED: PREDNISONE 10 M10 MG PO (15:29)
--- NOTE | 2018-11-21 16:19 | NUR ---
ULYSSES met with pt after speaking with Dr Nguyen who explained that pt dc home with family and hospice will be tomorrow, Saturday. ULYSSES informed family of ambulance transportation home as family was concerned with transportation and pt being able to get safely in the home. Ambulance form complete, just need faxed and time arranged when exact dc time known. Pt would prefer by noon if possible. ULYSSES called [facility] and informed of pt dc home tomorrow, the only thing they requested was an order for Bipap to be faxed to [facility], ULYSSES received order from Dr Nguyen and faxed to [facility]. Final order dc timing info to [facility] upon final dc arrangement. [facility] ph [phone] fax [phone]
--- NOTE | 2018-11-21 16:27 | NUR ---
SHIFT NOTE - FAMILY PRESENT AT BEDSIDE FOR MOST OF THIS SHIFT. PT STATED HE IS FEELING ANXIOUS ABOUT LEAVING. UP IN CHAIR. STATED HE FELT "PRETTY GOOD" THIS AM BUT FEELING "WEAK" THIS AFTERNOON. WILL CONTINUE TO MONITOR.
[2018-11-21 21:00] VITALS: BP 143/62
--- NOTE | 2018-11-22 04:59 | NUR ---
PT IN BED THROUGH OUT SHIFT. SAO2 @ 98% VIA 4L NC. PT DENIES PAIN DURING ASSESSMENT. MEDS ADIMINSTERED SHCEDULED. PT ON 4L BIPAP, BED ON BARILLAS'S. PT USES URINALS APPROPRIATELY, URINALS WITHIN REACH. CALL LIGHT WITHIN REACH. PT SLEPT ALL THROUGH THE NIGHT. WILL CONTINUE TO FOLLOW PLAN OF CARE.
--- NOTE | 2018-11-22 06:32 | NUR ---
I HAVE REVIEWED CHARTING COMPLETED BY MENDOZA JARAMILLO RN AND CONCUR WITH HER DOCUMENTATION.
[2018-11-22 08:00] VITALS: BP 119/61
[2018-11-22 15:02] VITALS: BP 167/76
[2018-11-22 15:30] VITALS: BP 147/75
--- NOTE | 2018-11-22 16:57 | NUR ---
SHIFT NOTE - BIPAP ON AT HS. NC DURING DAY. CURRENTLY ON 4L O2. PT UP IN CHAIR FOR PART OF THIS SHIFT. PT REQUESTED THIS NURSE TO CRUSH MEDS AND PLACE IN PUDDING. WILL CONTINUE TO MONITOR.
[2018-11-22 20:00] VITALS: BP 148/72
--- NOTE | 2018-11-23 05:35 | NUR ---
PATIENT SLEPT WELL DURING THIS SHIFT. PT ON 4 LITERS PER HIGH FLOW NASAL CANNULA BUT ON BIPAP AT NIGHT. PT WITH SALINE LOCK IN LT FOREARM; PATENT. PT VOIDS DARK YELLOW URINE PER URINAL. PT ON FLUID RESTRICTIONS, DRANK APPROX 200ML DURING THIS SHIFT. PT ASSISTED WITH TURNS Q2H BUT IS ALSO ABLE TO REPOSITION HIMSELF IN BED. PT WITH NUMEROUS SKIN TEARS; COVERED WITH MEPELEX DSG. FREQUENTLY USED ITEMS AND CALL LIGHT WITHIN REACH. SIDERAILS UPX3 AND BED ALARM ON. WILL CONTINUE TO MONITOR.
[2018-11-23 08:00] VITALS: BP 137/61
[2018-11-23 15:30] VITALS: BP 146/71
[2018-11-23 16:36] LABS: ANION GAP < 0 mmol/L (7-16); BUN 12 mg/dL (7-18); CHLORIDE 83 mmol/L (98-107); CO2 40 mmol/L (21-32); CREATININE 0.8 mg/dL (0.6-1.3); GLUCOSE 143 mg/dL (70-99); SODIUM 122 mmol/L (136-145)
--- NOTE | 2018-11-23 16:36 | NUR ---
SHIFT NOTE - FAMILY AT BEDSIDE FOR ALL OF THIS SHIFT. PT ABLE TO USE URINAL WITHOUT PROBLEMS. PT SAT UP IN CHAIR FOR 2 HOURS THIS SHIFT FOR LUNCH. WILL CONTINUE TO MONITOR.
[2018-11-23 16:38] LABS: POTASSIUM 4.2 mmol/L (3.5-5.1)
[2018-11-24] VITALS: BP 138/69
[2018-11-24 04:12] LABS: HEMATOCRIT 40.8 % (42.0-52.0); HEMOGLOBIN 13.7 gm/dL (14.0-18.0); MCH 29.3 pg (26.0-34.0); MCHC 33.6 g/dL (28.0-37.0); MCV 87.1 fL (80.0-100.0); MPV 8.1 fl. (7.2-11.1); NUCLEATED RBCS 0 /100WBC; PLATELET COUNT* 273 thou/uL (150-400); RBC 4.69 mil/uL (4.50-6.00); RDW-CV 12.8 % (10.5-14.5); WBC 13.9 thou/uL (4.0-11.0)
[2018-11-24 05:57] LABS: ABSOLUTE MONOCYTES 1.1 thou/uL (0.0-1.2); ABSOLUTE NEUTROPHILS 12.8 thou/uL (1.6-8.1); ANISOCYTOSIS 1+; PLATELET ESTIMATE ADEQUATE; POIKILOCYTOSIS 1+
--- NOTE | 2018-11-24 07:45 | NUR ---
[facility] CALLED TO NEPHROLOGY PER ORDERS. NO NEW ORDERS NOTED. CALL LIGHT WITHIN REACH. WILL CONTINUE WITH PLAN OF CARE.
[2018-11-24 08:00] VITALS: BP 163/75
[2018-11-24 09:34] LABS: BE 12.4 mmol/L (-2 to +3); PO2 94.8 mmHg (75.0-100.0); pH 7.388 (7.340-7.450)
[2018-11-24 09:37] LABS: PCO2 69.4 mmHg (35.0-45.0)
[2018-11-24 16:00] VITALS: BP 179/84
--- NOTE | 2018-11-24 17:48 | NUR ---
PATIENT HAS BEEN A/O X 4, SLIGHLTY FORGETFUL AT TIMES. PATIENT HAS DENIED PAIN. PAITENT UP WITH SBA TO BSC. PATIENT ON 4L PER HIGH SHOSHANA NC. PATIENT CONTINUES ON IV STEROIDS, IV FLUIDS AND IV ANTIBIOTICS. CONTINUES ON FLUID RESTRICTION, NEEDS RE-EDUCATION ON FLUID RESTRICTION. TAKES MEDS CRUSHED IN PUDDING. TURNED EVERY 2 HOURS AND HAS HEELS ELEVATED. FAMILY AT BEDSIDE. PLAN IS FOR PATIENT TO BE DISCHARGED ON SATURDAY WITH HOSPICE. HOULRY ROUNDING COMPLETED. CALL LIGHT WITHIN REACH. WILL CONTINUE WITH PLAN OF CARE.
[2018-11-24 21:00] VITALS: BP 142/73
--- NOTE | 2018-11-25 05:24 | NUR ---
PT SLEPT MOST OF SHIFT. ASSESSMENT DOCUMENTED. MEDS GIVEN PER E-OCT. IV PATENT, FLUIDS INFUSING. NO REPORTS OF PAIN THIS SHIFT. O2 WORN AT 4L NC WHILE AWAKE, BIPAP WORN WHILE SLEEPING. PT REPOSITIONED THOUGH NIGHT. DRESSINGS C/D/I. WILL CONTINUE WITH PLAN OF CARE.
[2018-11-25 10:01] VITALS: BP 176/59
--- NOTE | 2018-11-25 10:35 | CON ---
[address] [address] CONSULTATION Name: SANTOSH PEÑA Room: [address] IN M.R.#: [id number] Admission: 11/13/18 Attend Phys: Mila Rodriguez MD Discharge: Date of : 48 Report #: [id number] THIS REPORT FOR: //name// CC: Jac Rodriguez [facility] NEPHROLOGY CONSULTATION CONSULTING PHYSICIAN: Dr. Rodriguez REASON FOR CONSULTATION: Hyponatremia. HISTORY OF PRESENT ILLNESS: This is a 68-year-old gentleman who has had a markedly diminished appetite over the past month to month and a half, admitted with hyponatremia. Sodium is down to 122. Denies any recent new diuretic medications that were started. He has experienced some weight loss due to the poor appetite and has been admitted with pneumonitis and respiratory failure, is being followed by Pulmonology, has underlying severe COPD, his family is present in the room and helped provide some of the history. He has had no troubles with hyponatremia in the past. No new diuretic medications. REVIEW OF SYSTEMS: Constitutional, psych, heme, eyes, ENT, respiratory, cardiac, GI, , endocrine, all negative except as documented above. PAST MEDICAL HISTORY: History of severe COPD, oxygen and steroid dependent; history of dyslipidemia. MEDICATIONS: Reviewed. FAMILY HISTORY: Not pertinent in this 68-year-old gentleman. SOCIAL HISTORY: No current tobacco use, previous heavy tobacco use. PHYSICAL EXAMINATION: VITAL SIGNS: Blood pressure 162/75, pulse 107, temperature 36.7, respirations 20. GENERAL: In no acute distress. EYES: Open. EARS: Externally normal. CARDIOVASCULAR: Regular rate. LUNGS: Diminished. ABDOMEN: Soft. MUSCULOSKELETAL: Nontender. PSYCHIATRIC: Awake, chronically ill appearing. LABORATORY DATA: White cell count 13.7, hemoglobin 13.9, platelets [place] [address] CONSULTATION Name: SANTOSH PEÑA Room: [address]#: [id number] Admission: 11/13/18 Attend Phys: Mila Rodriguez MD Discharge: Date of : 48 Report #: [id number], potassium 4, chloride 86, bicarbonate 39, BUN 12, creatinine 0.6, glucose 159, calcium 8.7, magnesium 1.9. ASSESSMENT: 1. Hyponatremia with a sodium of 123 up to 126 on November 24. Urine sodium was 17, urine osmolality pending. Thyroid-stimulating hormone was not elevated. CT chest noted for pneumonia and emphysema, underlying severe chronic obstructive pulmonary disease. 2. Pneumonia. 3. Severe chronic obstructive pulmonary disease. 4. Hypertension. 5. Benign prostatic hypertrophy. PLAN: 1. Sodium is a bit better today on fluid restriction. 2. Antibiotics have been ordered and Infectious Disease and Pulmonology are following. 3. Sodium is improved with normal saline at 50 mL an hour. 4. I discussed with family in detail their wishes to take him home with hospice. I have no other recommendations at this time. We will sign off. Please call with any questions. Thank you for requesting my opinion in the care and management of this patient. <ELECTRONICALLY SIGNED> By: Yi Hartley MD 11/25/18 1035 [id number] [id number] Hartley MD /nt
[2018-11-25] MEDS ORDERED: LEVAQUIN 500 M500 M2 PO (11:08)
[2018-11-25 11:15] VITALS: BP 176/59
[2018-11-25 11:56] VITALS: BP 176/59
--- NOTE | 2018-11-25 11:58 | NUR ---
ULYSSES followed up with [facility] and ensured that the hospice has everything they needed and pt to dc home with today. Hospice nurse will be able to meet pt at home at 2:00pm. ULYSSES faxed ambulance transfer form. ULYSSES met with pt and pt who are in agreement with plan. ULYSSES informed Dr Nguyen of finalization of plan as well. Pt nurse aware. [facility] [phone], fax [phone]
[2018-11-25 13:35] VITALS: BP 176/59
--- NOTE | 2018-11-25 13:58 | NUR ---
PATIENT IS ALERT AND ORINETED TODAY VERY PLEASANT. FAMILY IS AT BEDSIDE, HOSPICE IS SET UP FOR THE PATIENT AT HOME. PATIENT HAS HAD NO COMPLAINTS OF PAIN TODAY AND VITAL SIGNS STABLE ON 4 LITERS OF OXYGEN THROUGH NASAL CANNULA AND USES BIPAP AT NIGHT. PATIENT LEFT VIA CART TO HOME BY AMBULANCE. FAMILY TOOK BELONGININGS HOME WITH THEM.
[2018-11-25 14:23] VITALS: BP 176/59
== END 2018-11-25 13:54 | disposition hospice, home (50) | DRG 177 ==
LOC: M.ERS 16:21 → M.TBA-ER 17:47 → M.3W 17:47 → M.ORTHSURG 11-16 03:07 → M.3W 11-16 03:14
PROVIDERS: Emergency Medicine Emergency Medical Services; Family Medicine; Internal Medicine; Internal Medicine Critical Care Medicine; Internal Medicine Pulmonary Disease; ADMIT Internal Medicine
PROC: 5A09357 Assistance with Respiratory Ventilation, Less than 24 Consecutive Hours, Continuous Positive Airway Pressure (ICD-10-PCS; principal; 2018-11-14)
PROC: 5A09357 Assistance with Respiratory Ventilation, Less than 24 Consecutive Hours, Continuous Positive Airway Pressure (ICD-10-PCS; 2018-11-15)
PROC: 5A09357 Assistance with Respiratory Ventilation, Less than 24 Consecutive Hours, Continuous Positive Airway Pressure (ICD-10-PCS; 2018-11-16)
PROC: 5A09357 Assistance with Respiratory Ventilation, Less than 24 Consecutive Hours, Continuous Positive Airway Pressure (ICD-10-PCS; 2018-11-17)
PROC: 5A09357 Assistance with Respiratory Ventilation, Less than 24 Consecutive Hours, Continuous Positive Airway Pressure (ICD-10-PCS; 2018-11-18)
PROC: 5A09357 Assistance with Respiratory Ventilation, Less than 24 Consecutive Hours, Continuous Positive Airway Pressure (ICD-10-PCS; 2018-11-19)
PROC: 5A09357 Assistance with Respiratory Ventilation, Less than 24 Consecutive Hours, Continuous Positive Airway Pressure (ICD-10-PCS; 2018-11-20)
PROC: 5A09357 Assistance with Respiratory Ventilation, Less than 24 Consecutive Hours, Continuous Positive Airway Pressure (ICD-10-PCS; 2018-11-21)
PROC: 5A09357 Assistance with Respiratory Ventilation, Less than 24 Consecutive Hours, Continuous Positive Airway Pressure (ICD-10-PCS; 2018-11-22)
PROC: 5A09357 Assistance with Respiratory Ventilation, Less than 24 Consecutive Hours, Continuous Positive Airway Pressure (ICD-10-PCS; 2018-11-23)
PROC: 5A09357 Assistance with Respiratory Ventilation, Less than 24 Consecutive Hours, Continuous Positive Airway Pressure (ICD-10-PCS; 2018-11-24)
PROC: 5A09357 Assistance with Respiratory Ventilation, Less than 24 Consecutive Hours, Continuous Positive Airway Pressure (ICD-10-PCS; 2018-11-25)
DX: J15.6 Pneumonia due to other Gram-negative bacteria (principal); J96.22 Acute and chronic respiratory failure with hypercapnia; J96.21 Acute and chronic respiratory failure with hypoxia; J44.1 Chronic obstructive pulmonary disease with (acute) exacerbation; E87.1 Hypo-osmolality and hyponatremia; E46 Unspecified protein-calorie malnutrition; J44.0 Chronic obstructive pulmonary disease with (acute) lower respiratory infection; E78.00 Pure hypercholesterolemia, unspecified; E78.5 Hyperlipidemia, unspecified; J20.9 Acute bronchitis, unspecified; I10 Essential (primary) hypertension; D72.829 Elevated white blood cell count, unspecified; N40.0 Benign prostatic hyperplasia without lower urinary tract symptoms; Z66 Do not resuscitate; I27.81 Cor pulmonale (chronic); Z79.52 Long term (current) use of systemic steroids; Z80.1 Family history of malignant neoplasm of trachea, bronchus and lung; Z82.49 Family history of ischemic heart disease and other diseases of the circulatory system; Z99.81 Dependence on supplemental oxygen; Z87.891 Personal history of nicotine dependence; Z68.21 Body mass index [BMI] 21.0-21.9, adult